=== PATIENT | female | born 1990 | race African-American/Black ===

== ENCOUNTER 2018-10-27 12:48 | Emergency (ER) | payer SELFPAY ==
[2018-10-27] MEDS ORDERED: Fluorescein Opthalmic Strip ONE (13:16)
[2018-10-27] MEDS ORDERED: Proparacaine 0.5% Opth 15 ML BOT ONE (13:18)
== END 2018-10-27 13:51 | disposition home or self-care (01) ==
LOC: ERS 12:48
DX: H10.9 Unspecified conjunctivitis (principal); I10 Essential (primary) hypertension
CPT/HCPCS: 99283

== ENCOUNTER 2020-05-14 21:18 | Emergency (ER) | payer OTHER, SELFPAY | END 2020-05-14 22:34 | disposition home or self-care (01) | LOC: ERS 21:18 | DX: R50.9 Fever, unspecified (principal); R05 Cough; R51 Headache; Z20.828 Contact with and (suspected) exposure to other viral communicable diseases | CPT/HCPCS: 99283 ==

== ENCOUNTER 2020-05-19 14:20 | Emergency (ER) | payer OTHER, SELFPAY ==
[2020-05-20 14:07] LABS: SARS-CoV-2 MS2 Positive; SARS-CoV-2 N Gene Negative; SARS-CoV-2 S Gene Negative; SARS-CoV-2 orf1ab Negative
== END 2020-05-19 15:10 | disposition home or self-care (01) ==
LOC: ERS 14:20
DX: Z20.828 Contact with and (suspected) exposure to other viral communicable diseases (principal); I10 Essential (primary) hypertension
CPT/HCPCS: 87635; 99282; U0003

== ENCOUNTER 2020-10-09 07:43 | Emergency (ER) | payer OTHER, SELFPAY ==
[2020-10-09] MEDS ORDERED: Lidocaine 1% PF 5 ML VIAL ONE ×3 (08:55→08:59)
[2020-10-09] MEDS ORDERED: Lidocaine 1% w/Epinephrine 1:100K 20 ML VIAL ONE (08:56)
[2020-10-09] MEDS ORDERED: traMADol HCl 50 MG TAB ONE (09:24)
== END 2020-10-09 10:03 | disposition home or self-care (01) ==
LOC: ERS 07:43
DX: N75.1 Abscess of Bartholin's gland (principal); I10 Essential (primary) hypertension
CPT/HCPCS: 56420

== ENCOUNTER 2020-10-12 19:50 | Emergency (ER) | payer SELFPAY ==
[2020-10-12] MEDS ORDERED: Clindamycin 150 MG CAP ONE (21:17)
== END 2020-10-12 21:23 | disposition home or self-care (01) ==
LOC: ERS 19:50
DX: N75.0 Cyst of Bartholin's gland (principal); I10 Essential (primary) hypertension
CPT/HCPCS: 99283

== ENCOUNTER 2021-08-06 22:36 | Emergency (ER) | payer SELFPAY ==
[2021-08-06] MEDS ORDERED: Metoclopramide HCl 10 MG/2 ML VIAL ONE (23:23)
[2021-08-06] MEDS ORDERED: Acetaminophen 500 MG TAB ONE (23:23)
[2021-08-06] MEDS ORDERED: diphenhydrAMINE 50 MG/ML VIAL ONE (23:23)
[2021-08-06] MEDS ORDERED: Ketorolac Tromethamine 30 MG/ML VIAL ONE (23:23)
[2021-08-07 00:03] LABS: Hemoglobin 13.9 g/dL (12.0-16.0); Mean Corpuscular HGB CONC 32.1 g/dL (32.0-36.0); Mean Corpuscular Hemoglobin 28.9 pg (27.0-31.0); Mean Corpuscular Volume 90.2 fL (78.0-98.0); Platelet Count 278 thou/uL (130-400); RBC Distribution Width 13.6 % (11.5-14.5); Red Blood Cell (RBC) Count 4.79 mill/uL (4.20-5.40); White Blood Cell (WBC) Count 4.1 thou/uL (4.8-10.8)
[2021-08-07 00:12] LABS: ALT (SGPT) 11 U/L (8-55); AST (SGOT) 16 U/L (5-34); Albumin 3.9 g/dL (3.5-5.0); Alkaline Phosphatase 98 U/L (40-110); Anion Gap 11 mmol/L (10-20); BUN (Urea Nitrogen) 10 mg/dL (7.0-18.7); Bilirubin, Total 0.4 mg/dL (0.2-1.2); Calc. Creatinine Clearance 0 mL/min (70-130); Calcium 9.2 mg/dL (7.8-10.44); Carbon Dioxide 24 mmol/L (22-29); Chloride 107 mmol/L (98-107); Globulin 3.6 g/dL (2.4-3.5); Glucose 108 mg/dL (70-105); Potassium 3.6 mmol/L (3.5-5.1); Protein, Total 7.5 g/dL (6.0-8.3); Sodium 138 mmol/L (136-145)
[2021-08-07 00:40] LABS: Band 3 % (5-11); Lymphocytes 31 % (21-51); MDiff Complete? YES; Monocytes 12 % (0-10); Neutrophil 54 % (42-75); Platelet Morphology Comment Appears Adequate; RBC Morphology Normal
[2021-08-07 19:11] LABS: SARS-CoV-2 PCR by NAA DETECTED (NotDetected)
== END 2021-08-07 01:30 | disposition home or self-care (01) ==
LOC: ERS 22:36
DX: U07.1 COVID-19 (principal)
CPT/HCPCS: 71045; 80053; 85025; 96365; 96375; J1200; J1885; J2765; U0003; U0005

== ENCOUNTER 2021-08-13 22:32 | Emergency (ER) | payer SELFPAY | END 2021-08-14 07:25 | disposition home or self-care (01) | LOC: ERS 22:32 | DX: U07.1 COVID-19 (principal) | CPT/HCPCS: 71045 ==